=== PATIENT | male | born 1965 | race African-American/Black ===

== ENCOUNTER 2018-09-02 00:38 | Inpatient (IN) | payer MEDICAID, OTHER ==
[~2018-09-02] VITALS: Ht 180.3 cm; Wt 81.8 kg
[2018-09-02 01:22] LABS: BASOPHILS % (AUTO) 0.6 % (0.0-2.0); HEMOGLOBIN 13.6 g/dL (13.5-17.5); LYMPHOCYTES # (AUTO) 1.4 K/uL (1.0-4.8); LYMPHOCYTES % (AUTO) 14.2 % (22.0-44.0); MEAN CORPUSCULAR HEMOGLOBIN 30.3 pg (26.0-34.0); MEAN CORPUSCULAR HGB CONC 33.9 G/dL (31.0-37.0); MEAN CORPUSCULAR VOLUME 89 fL (80-100); MONOCYTES % (AUTO) 9.4 % (2.0-9.0); NEUTROPHILS # (AUTO) 7.4 K/uL (1.8-7.7); NEUTROPHILS % (AUTO) 72.8 % (40.0-70.0); PLATELET COUNT (AUTO) 278 K/uL (150-450); RED BLOOD CELL COUNT(AUTO) 4.48 MIL/uL (4.50-5.90)
[2018-09-02 01:35] LABS: ANION GAP 12 mmol/L (8-16); CALCIUM, TOTAL 9.4 mg/dL (8.8-10.5); CARBON DIOXIDE 27 mmol/L (22-29); CHLORIDE 101 mmol/L (98-107); CREATININE 1.35 mg/dL (0.60-1.30); GLOMERULAR FILTR. RATE CALC > 60 mL/min (>60); GLUCOSE,RANDOM 101 mg/dL (70-110); POTASSIUM 3.2 mmol/L (3.5-5.1); SODIUM SERUM 140 mmol/L (136-145); UREA NITROGEN, BLOOD 14 mg/dL (7-18)
[2018-09-02 01:38] LABS: ALANINE AMINOTRANSFERASE 23 U/L (12-78); ALBUMIN 3.8 g/dL (3.4-5.0); ALKALINE PHOSPHATASE 76 U/L (46-116); ASPARTATE AMINOTRANSFERASE 21 U/L (15-37); BILIRUBIN,TOTAL 0.7 mg/dL (0.1-1.0); TOTAL PROTEIN, SERUM 7.5 g/dL (6.4-8.2)
[2018-09-02] MEDS ORDERED: LORazepam 2 MG TABLET PO ONE (02:00)
[2018-09-02] MEDS ORDERED: OLANZapine 5 MG TABLET PO ONE (02:00)
[2018-09-02] MEDS ORDERED: OLANZapine 5 MG RAPDIS TABLET PO PRN (02:15)
[2018-09-02] MEDS ORDERED: POTASSIUM CHLORIDE 20 MEQ ER TABLET PO ONE (02:30)
[2018-09-02] MEDS ORDERED: IBUPROFEN 800 MG TABLET PO ONE (02:30)
[2018-09-02 03:50] VITALS: BP 101/62
[2018-09-02] MEDS ORDERED: PNEUMOCOCCAL VACCINE POLYVALENT 0.5 ML VIAL [PPSV23] IM ONE (04:30)
[2018-09-02] MEDS ORDERED: CloNIDine HCL 0.1 MG TABLET PO PRN (05:45)
[2018-09-02] MEDS ORDERED: MAG HYDROX/AL HYDROX/SIMETH ES 30 ML SUSPENSION UDCUP PO PRN (05:45)
[2018-09-02] MEDS ORDERED: ONDANSETRON HCL 4 MG TABLET PO PRN (05:45)
[2018-09-02] MEDS ORDERED: LOPERAMIDE HCL 2 MG CAPSULE PO PRN (05:45)
[2018-09-02] MEDS ORDERED: ACETAMINOPHEN 325 MG TABLET PO PRN (05:45)
[2018-09-02] MEDS ORDERED: ALBUTEROL SULFATE HFA 90 MCG/PUFF 8 GM INHALER IH PRN (05:45)
[2018-09-02] MEDS ORDERED: MAGNESIUM HYDROXIDE SUSPENSION 30 ML UDCUP PO PRN (05:45)
[2018-09-02] MEDS ORDERED: NICOTINE 14 MG/24 HOUR PATCH TD PRN (05:45)
[2018-09-02] MEDS ORDERED: PETROLATUM,WHITE 28 GM JELLY TP PRN (05:45)
[2018-09-02] MEDS ORDERED: IBUPROFEN 400 MG TABLET PO PRN (05:45)
[2018-09-02] MEDS ORDERED: DOCUSATE SODIUM 100 MG CAPSULE PO PRN (05:45)
[2018-09-02 08:54] VITALS: BP 103/62
[2018-09-02] MEDS: BusPIRone HCL 10 MG TABLET PO SCH ×2 (12:55→17:07)
[2018-09-02] MEDS: GuaiFENesin/D-METHORPHAN [SUGAR-FREE] 200-20MG/10 ML SYRUP UDCUP PO PRN (17:23)
[2018-09-02 17:45] VITALS: BP 122/75
[2018-09-02] MEDS: OLANZapine 10 MG TABLET PO SCH (20:29)
[2018-09-02] MEDS: MIRTAZAPINE 15 MG TABLET PO SCH (20:30)
[2018-09-03 00:03] VITALS: BP 103/72
[2018-09-03] MEDS: GuaiFENesin/D-METHORPHAN [SUGAR-FREE] 200-20MG/10 ML SYRUP UDCUP PO PRN (00:05)
[2018-09-03 08:22] LABS: BASOPHILS % (AUTO) 0.5 % (0.0-2.0); HEMATOCRIT 44.9 % (41-53); HEMOGLOBIN 14.9 g/dL (13.5-17.5); LYMPHOCYTES # (AUTO) 1.7 K/uL (1.0-4.8); LYMPHOCYTES % (AUTO) 17.4 % (22.0-44.0); MEAN CORPUSCULAR HEMOGLOBIN 29.9 pg (26.0-34.0); MEAN CORPUSCULAR HGB CONC 33.2 G/dL (31.0-37.0); MEAN CORPUSCULAR VOLUME 90 fL (80-100); MONOCYTES # (AUTO) 1.2 K/uL (0.1-1.0); NEUTROPHILS # (AUTO) 6.5 K/uL (1.8-7.7); NEUTROPHILS % (AUTO) 67.1 % (40.0-70.0); PLATELET COUNT (AUTO) 300 K/uL (150-450); RED BLOOD CELL COUNT(AUTO) 4.99 MIL/uL (4.50-5.90)
[2018-09-03 08:36] LABS: HEMOGLOBIN A1C 5.6 % (4.5-6.2)
[2018-09-03 08:51] LABS: ALANINE AMINOTRANSFERASE 20 U/L (12-78); ALBUMIN 3.5 g/dL (3.4-5.0); ALKALINE PHOSPHATASE 75 U/L (46-116); ANION GAP 12 mmol/L (8-16); ASPARTATE AMINOTRANSFERASE 15 U/L (15-37); BILIRUBIN,TOTAL 0.5 mg/dL (0.1-1.0); CALCIUM, TOTAL 9.3 mg/dL (8.8-10.5); CARBON DIOXIDE 26 mmol/L (22-29); CHLORIDE 101 mmol/L (98-107); CHOL/HDL RATIO 2.9 (4.2-7.3); CHOLESTEROL 197 mg/dL (131-200); CREATININE 0.92 mg/dL (0.60-1.30); FREE T4 (FREE THYROXINE) 0.95 ng/dL (0.76-1.46); GLOMERULAR FILTR. RATE CALC > 60 mL/min (>60); GLUCOSE,RANDOM 85 mg/dL (70-110); HDL CHOLESTEROL 68 mg/dL (40-60); LDL CHOL (CALC.) 114 mg/dL (0-130); POTASSIUM 3.6 mmol/L (3.5-5.1); SODIUM SERUM 139 mmol/L (136-145); THYROID STIMULATING HORMONE 1.49 uIU/mL (0.36-3.74); TOTAL PROTEIN, SERUM 7.5 g/dL (6.4-8.2); TRIGLYCERIDES 74 mg/dL (15-150); UREA NITROGEN, BLOOD 12 mg/dL (7-18)
[2018-09-03] MEDS: BusPIRone HCL 10 MG TABLET PO SCH ×2 (08:51→16:25)
[2018-09-03 09:37] VITALS: BP 91/61
[2018-09-03 16:00] VITALS: BP 118/70
[2018-09-03] MEDS: MIRTAZAPINE 15 MG TABLET PO SCH (21:00)
[2018-09-03] MEDS: OLANZapine 10 MG TABLET PO SCH (21:00)
[2018-09-04 08:24] VITALS: BP 115/62
[2018-09-04] MEDS: PENICILLIN V POTASSIUM 500 MG TABLET PO SCH ×2 (08:29→16:54)
[2018-09-04] MEDS: BusPIRone HCL 10 MG TABLET PO SCH ×2 (08:29→16:54)
[2018-09-04 09:34] LABS: AMPHET/METH SCREEN,URINE POSITIVE (NEGATIVE); BARBITURATE SCREEN, URINE NEGATIVE (NEGATIVE); BENZODIAZEPINES SCREEN,URINE NEGATIVE (NEGATIVE); CANNABINOID SCREEN,URINE POSITIVE (NEGATIVE); COCAINE SCREEN,URINE NEGATIVE (NEGATIVE); METHADONE SCREEN, URINE NEGATIVE (NEGATIVE); OPIATE SCREEN,URINE NEGATIVE (NEGATIVE)
[2018-09-04 09:38] LABS: APPEARANCE,URINE CLEAR (CLEAR); BILIRUBIN,URINE NEGATIVE (NEGATIVE); GLUCOSE, URINE (UA) NEGATIVE (NEGATIVE); KETONES,URINE NEGATIVE (NEGATIVE); LEUKOCYTE ESTERASE ,URINE NEGATIVE (NEGATIVE); NITRATE,URINE NEGATIVE (NEGATIVE); OCCULT BLOOD,URINE NEGATIVE (NEGATIVE); PH,URINE 6.5 (5.0-8.0); PROTEIN,URINE NEGATIVE (NEGATIVE); UROBILINOGEN,URINE 0.2 mg/dL (<=1.0)
[2018-09-04 09:39] LABS: PHENCYCLIDINE SCREEN,URINE NEGATIVE (NEGATIVE)
[2018-09-04 16:02] VITALS: BP 106/68
[2018-09-04] MEDS: MIRTAZAPINE 15 MG TABLET PO SCH (20:44)
[2018-09-04] MEDS: OLANZapine 10 MG TABLET PO SCH (20:44)
[2018-09-05 06:54] VITALS: BP 111/65
[2018-09-05] MEDS: PENICILLIN V POTASSIUM 500 MG TABLET PO SCH ×2 (08:46→16:45)
[2018-09-05] MEDS: BusPIRone HCL 10 MG TABLET PO SCH ×2 (08:46→16:45)
[2018-09-05 09:06] VITALS: BP 92/47
[2018-09-05 16:01] VITALS: BP 102/62
[2018-09-05] MEDS: OLANZapine 10 MG TABLET PO SCH (20:53)
[2018-09-05] MEDS: MIRTAZAPINE 15 MG TABLET PO SCH (20:54)
[2018-09-06 06:08] VITALS: BP 110/67
[2018-09-06 08:05] VITALS: BP 102/56
[2018-09-06] MEDS: PENICILLIN V POTASSIUM 500 MG TABLET PO SCH ×2 (08:11→16:28)
[2018-09-06] MEDS: BusPIRone HCL 10 MG TABLET PO SCH ×2 (08:12→16:28)
[2018-09-06 15:59] VITALS: BP 101/65
[2018-09-06 16:29] VITALS: BP 101/65
[2018-09-06] MEDS: OLANZapine 10 MG TABLET PO SCH (20:02)
[2018-09-06] MEDS: MIRTAZAPINE 15 MG TABLET PO SCH (20:02)
[2018-09-07] MEDS: BusPIRone HCL 10 MG TABLET PO SCH ×2 (09:00→16:16)
[2018-09-07] MEDS: PENICILLIN V POTASSIUM 500 MG TABLET PO SCH ×2 (09:00→16:16)
[2018-09-07 09:27] VITALS: BP 100/63
[2018-09-07 16:38] VITALS: BP 113/75
[2018-09-07] MEDS: MIRTAZAPINE 15 MG TABLET PO SCH (21:01)
[2018-09-07] MEDS: OLANZapine 10 MG TABLET PO SCH (21:01)
[2018-09-08 06:47] VITALS: BP 107/69
[2018-09-08 08:04] VITALS: BP 101/58
[2018-09-08] MEDS: PENICILLIN V POTASSIUM 500 MG TABLET PO SCH ×2 (09:04→16:41)
[2018-09-08] MEDS: BusPIRone HCL 10 MG TABLET PO SCH ×2 (09:04→16:41)
[2018-09-08] MEDS: LORazepam 2 MG TABLET PO PRN (17:31)
[2018-09-08 20:17] VITALS: BP 100/64
[2018-09-08] MEDS: GABAPENTIN 300 MG CAPSULE PO SCH (20:46)
[2018-09-08] MEDS: MIRTAZAPINE 15 MG TABLET PO SCH (20:47)
[2018-09-08] MEDS: OLANZapine 10 MG TABLET PO SCH (20:47)
[2018-09-08] MEDS: ZOLPIDEM TARTRATE 10 MG TABLET PO PRN (20:47)
[2018-09-09 08:24] VITALS: BP 100/62
[2018-09-09] MEDS: PENICILLIN V POTASSIUM 500 MG TABLET PO SCH ×2 (09:35→17:11)
[2018-09-09] MEDS: BusPIRone HCL 10 MG TABLET PO SCH ×2 (09:35→17:11)
[2018-09-09 16:00] VITALS: BP 116/76
[2018-09-09] MEDS: LORazepam 2 MG TABLET PO PRN (17:11)
[2018-09-09] MEDS: MIRTAZAPINE 15 MG TABLET PO SCH (20:37)
[2018-09-09] MEDS: GABAPENTIN 300 MG CAPSULE PO SCH (20:37)
[2018-09-09] MEDS: OLANZapine 10 MG TABLET PO SCH (20:37)
[2018-09-10 08:21] VITALS: BP 97/59
[2018-09-10] MEDS: BusPIRone HCL 10 MG TABLET PO SCH ×2 (09:07→16:49)
[2018-09-10] MEDS: PENICILLIN V POTASSIUM 500 MG TABLET PO SCH ×2 (09:07→16:49)
[2018-09-10 16:13] VITALS: BP 104/58
[2018-09-10 16:30] VITALS: BP 109/63
[2018-09-10] MEDS: LORazepam 2 MG TABLET PO PRN (16:49)
[2018-09-10] MEDS: MIRTAZAPINE 15 MG TABLET PO SCH (20:33)
[2018-09-10] MEDS: ZOLPIDEM TARTRATE 10 MG TABLET PO PRN (20:33)
[2018-09-10] MEDS: GABAPENTIN 300 MG CAPSULE PO SCH (20:33)
[2018-09-10] MEDS: OLANZapine 10 MG TABLET PO SCH (20:33)
[2018-09-11] MEDS: LORazepam 2 MG TABLET PO PRN (08:20)
[2018-09-11] MEDS: BusPIRone HCL 10 MG TABLET PO SCH ×2 (08:20→16:37)
[2018-09-11] MEDS: PENICILLIN V POTASSIUM 500 MG TABLET PO SCH ×2 (08:21→16:36)
[2018-09-11 08:40] VITALS: BP 107/58
[2018-09-11 16:38] VITALS: BP 104/62
[2018-09-11] MEDS: MIRTAZAPINE 15 MG TABLET PO SCH (20:30)
[2018-09-11] MEDS: OLANZapine 10 MG TABLET PO SCH (20:30)
[2018-09-11] MEDS: GABAPENTIN 300 MG CAPSULE PO SCH (20:30)
[2018-09-12 05:30] VITALS: BP 105/64
[2018-09-12] MEDS: PENICILLIN V POTASSIUM 500 MG TABLET PO SCH ×2 (09:00→12:36)
[2018-09-12] MEDS: BusPIRone HCL 10 MG TABLET PO SCH ×2 (09:00→12:36)
[2018-09-12] MEDS ORDERED: BUSP10TA23 PO ×3 (12:06→12:29)
[2018-09-12] MEDS ORDERED: OLAN10TA3 PO ×2 (12:07→12:30)
[2018-09-12] MEDS ORDERED: MIRT15 PO ×2 (12:07→12:29)
[2018-09-12] MEDS ORDERED: GABA-531 PO ×3 (12:24→12:30)
[2018-09-12] MEDS ORDERED: PENI500T2 PO (12:31)
== END 2018-09-12 13:30 | disposition home or self-care (01) | DRG 750 ==
LOC: EMS 00:39 → B3A 02:37
PROVIDERS: ADMIT Psychiatry & Neurology Psychiatry; ATTEND Psychiatry & Neurology Psychiatry
DX: F25.0 Schizoaffective disorder, bipolar type (principal); N17.9 Acute kidney failure, unspecified; R45.851 Suicidal ideations; E87.6 Hypokalemia; F31.9 Bipolar disorder, unspecified; G89.29 Other chronic pain; I10 Essential (primary) hypertension; J35.1 Hypertrophy of tonsils; F17.210 Nicotine dependence, cigarettes, uncomplicated; F12.90 Cannabis use, unspecified, uncomplicated; F41.9 Anxiety disorder, unspecified; F15.10 Other stimulant abuse, uncomplicated; Z71.51 Drug abuse counseling and surveillance of drug abuser; Z59.0 Homelessness; Z79.899 Other long term (current) drug therapy
CPT/HCPCS: 80307; 83036; 84439; 84443; 90686; 90732; G0480

== ENCOUNTER 2018-09-03 20:04 | Emergency (ER) | payer MEDICAID ==
[~2018-09-03] VITALS: Ht 180.3 cm; Wt 0.9 kg
[2018-09-03] MEDS ORDERED: MAALOX/LIDOCAINE/NYSTATIN SUSP 5 ML ORAL.SYG PO ONE (20:30)
[2018-09-03] MEDS ORDERED: BENZOCAINE 20% 50 MCG/SPRAY 57 GM TP ONE (20:30)
[2018-09-03] MEDS ORDERED: DEXAMETHASONE 4 MG TABLET PO ONE (20:30)
[2018-09-03] MEDS ORDERED: PENICILLIN V POTASSIUM 500 MG TABLET PO ONE (21:00)
[2018-09-03 23:10] VITALS: BP 132/69
== END 2018-09-04 00:01 | disposition home or self-care (01) ==
LOC: EMS 20:05
DX: J03.90 Acute tonsillitis, unspecified (principal); I10 Essential (primary) hypertension; F31.9 Bipolar disorder, unspecified; F41.9 Anxiety disorder, unspecified; F20.9 Schizophrenia, unspecified; F17.210 Nicotine dependence, cigarettes, uncomplicated; F12.90 Cannabis use, unspecified, uncomplicated; F19.90 Other psychoactive substance use, unspecified, uncomplicated
CPT/HCPCS: 99284; J8540

== ENCOUNTER 2018-10-03 16:29 | Inpatient (IN) | payer MEDICAID ==
[~2018-10-03] VITALS: Ht 180.3 cm; Wt 82.3 kg
[~2018-10-03 16:29] MED LIST: BUSP10TA23 PO; GABA-531 PO; MIRT15 PO; OLAN10TA3 PO; PENI500T2 PO
[2018-10-03] MEDS ORDERED: LORazepam 2 MG TABLET PO PRN (18:30)
[2018-10-03] MEDS ORDERED: ZOLPIDEM TARTRATE 10 MG TABLET PO PRN (18:30)
[2018-10-03] MEDS ORDERED: PNEUMOCOCCAL VACCINE POLYVALENT 0.5 ML VIAL [PPSV23] IM ONE (18:30)
[2018-10-03] MEDS ORDERED: HALOPERIDOL 5 MG TABLET PO PRN (18:30)
[2018-10-03 19:04] VITALS: BP 118/75
[2018-10-03] MEDS ORDERED: LOPERAMIDE HCL 2 MG CAPSULE PO PRN (21:30)
[2018-10-03] MEDS ORDERED: DOCUSATE SODIUM 100 MG CAPSULE PO PRN (21:30)
[2018-10-03] MEDS ORDERED: NICOTINE 14 MG/24 HOUR PATCH TD PRN (21:30)
[2018-10-03] MEDS ORDERED: IBUPROFEN 400 MG TABLET PO PRN (21:30)
[2018-10-03] MEDS ORDERED: PETROLATUM,WHITE 28 GM JELLY TP PRN (21:30)
[2018-10-03] MEDS ORDERED: ACETAMINOPHEN 325 MG TABLET PO PRN (21:30)
[2018-10-03] MEDS ORDERED: GuaiFENesin/D-METHORPHAN [SUGAR-FREE] 200-20MG/10 ML SYRUP UDCUP PO PRN (21:30)
[2018-10-03] MEDS ORDERED: MAGNESIUM HYDROXIDE SUSPENSION 30 ML UDCUP PO PRN (21:30)
[2018-10-03] MEDS ORDERED: ALBUTEROL SULFATE HFA 90 MCG/PUFF 8 GM INHALER IH PRN (21:30)
[2018-10-03] MEDS ORDERED: MAG HYDROX/AL HYDROX/SIMETH ES 30 ML SUSPENSION UDCUP PO PRN (21:30)
[2018-10-03] MEDS ORDERED: CloNIDine HCL 0.1 MG TABLET PO PRN (21:30)
[2018-10-03] MEDS ORDERED: ONDANSETRON HCL 4 MG TABLET PO PRN (21:30)
[2018-10-04 05:20] VITALS: BP 117/66
[2018-10-04 07:20] LABS: BASOPHILS % (AUTO) 1.4 % (0.0-2.0); EOSINOPHILS % (AUTO) 7.5 % (1.0-6.0); HEMATOCRIT 41.9 % (41-53); HEMOGLOBIN 13.9 g/dL (13.5-17.5); LYMPHOCYTES # (AUTO) 1.3 K/uL (1.0-4.8); LYMPHOCYTES % (AUTO) 26.8 % (22.0-44.0); MEAN CORPUSCULAR HEMOGLOBIN 29.7 pg (26.0-34.0); MEAN CORPUSCULAR HGB CONC 33.2 G/dL (31.0-37.0); MEAN CORPUSCULAR VOLUME 89 fL (80-100); MONOCYTES # (AUTO) 0.6 K/uL (0.1-1.0); MONOCYTES % (AUTO) 12.8 % (2.0-9.0); NEUTROPHILS # (AUTO) 2.5 K/uL (1.8-7.7); NEUTROPHILS % (AUTO) 51.5 % (40.0-70.0); PLATELET COUNT (AUTO) 253 K/uL (150-450); RED BLOOD CELL COUNT(AUTO) 4.68 MIL/uL (4.50-5.90); RED CELL DISTRIBUTION WIDTH 14.2 % (11.5-14.5)
[2018-10-04 07:45] LABS: HEMOGLOBIN A1C 5.6 % (4.5-6.2)
[2018-10-04 07:59] LABS: ALANINE AMINOTRANSFERASE 30 U/L (12-78); ALBUMIN 3.5 g/dL (3.4-5.0); ALKALINE PHOSPHATASE 74 U/L (46-116); ANION GAP 8 mmol/L (8-16); ASPARTATE AMINOTRANSFERASE 36 U/L (15-37); BILIRUBIN,TOTAL 0.4 mg/dL (0.1-1.0); CALCIUM, TOTAL 8.7 mg/dL (8.8-10.5); CARBON DIOXIDE 28 mmol/L (22-29); CHLORIDE 103 mmol/L (98-107); CHOL/HDL RATIO 2.3 (4.2-7.3); CHOLESTEROL 194 mg/dL (131-200); FREE T4 (FREE THYROXINE) 0.94 ng/dL (0.76-1.46); GLOMERULAR FILTR. RATE CALC > 60 mL/min (>60); GLUCOSE,RANDOM 98 mg/dL (70-110); HDL CHOLESTEROL 86 mg/dL (40-60); LDL CHOL (CALC.) 95 mg/dL (0-130); POTASSIUM 4.2 mmol/L (3.5-5.1); SODIUM SERUM 139 mmol/L (136-145); THYROID STIMULATING HORMONE 2.34 uIU/mL (0.36-3.74); TOTAL PROTEIN, SERUM 7.1 g/dL (6.4-8.2); TRIGLYCERIDES 64 mg/dL (15-150); UREA NITROGEN, BLOOD 23 mg/dL (7-18)
[2018-10-04 08:00] VITALS: BP 111/68
[2018-10-04] MEDS: BusPIRone HCL 10 MG TABLET PO SCH (16:05)
[2018-10-04 17:00] VITALS: BP 98/55
[2018-10-04] MEDS: OLANZapine 10 MG TABLET PO SCH (20:33)
[2018-10-04] MEDS: MIRTAZAPINE 15 MG TABLET PO SCH (20:33)
[2018-10-04] MEDS ORDERED: GABAPENTIN 300 MG CAPSULE PO SCH (21:00)
[2018-10-05 04:54] VITALS: BP 112/72
[2018-10-05 08:28] VITALS: BP 116/71
[2018-10-05] MEDS: BusPIRone HCL 10 MG TABLET PO SCH ×2 (08:44→17:47)
[2018-10-05 16:17] VITALS: BP 100/67
[2018-10-05] MEDS: GABAPENTIN 300 MG CAPSULE PO SCH (17:47)
[2018-10-05] MEDS: OLANZapine 10 MG TABLET PO SCH (21:27)
[2018-10-05] MEDS: MIRTAZAPINE 15 MG TABLET PO SCH (21:27)
[2018-10-06 00:07] VITALS: BP 107/69
[2018-10-06 08:19] VITALS: BP 115/74
[2018-10-06] MEDS: GABAPENTIN 300 MG CAPSULE PO SCH ×2 (08:35→17:20)
[2018-10-06] MEDS: BusPIRone HCL 10 MG TABLET PO SCH ×2 (08:35→17:20)
[2018-10-06 16:49] VITALS: BP 109/62
[2018-10-06] MEDS: MIRTAZAPINE 15 MG TABLET PO SCH (20:55)
[2018-10-06] MEDS: OLANZapine 10 MG TABLET PO SCH (20:55)
[2018-10-07 06:58] VITALS: BP 114/60
[2018-10-07 08:00] VITALS: BP 106/56
[2018-10-07] MEDS: BusPIRone HCL 10 MG TABLET PO SCH ×2 (09:34→16:45)
[2018-10-07] MEDS: GABAPENTIN 300 MG CAPSULE PO SCH ×2 (09:34→16:45)
[2018-10-07 16:12] VITALS: BP 107/74
[2018-10-07] MEDS: OLANZapine 10 MG TABLET PO SCH (21:00)
[2018-10-07] MEDS: MIRTAZAPINE 15 MG TABLET PO SCH (21:00)
[2018-10-08 00:36] VITALS: BP 107/65
[2018-10-08 09:06] VITALS: BP 110/66
[2018-10-08] MEDS: BusPIRone HCL 10 MG TABLET PO SCH ×2 (09:08→16:03)
[2018-10-08] MEDS: GABAPENTIN 300 MG CAPSULE PO SCH ×2 (09:08→16:03)
[2018-10-08 16:24] VITALS: BP 114/79
[2018-10-08] MEDS: MIRTAZAPINE 15 MG TABLET PO SCH (20:27)
[2018-10-08] MEDS: OLANZapine 10 MG TABLET PO SCH (20:27)
[2018-10-09 02:40] VITALS: BP 102/71
[2018-10-09 08:19] VITALS: BP 112/60
[2018-10-09] MEDS: BusPIRone HCL 10 MG TABLET PO SCH (09:22)
[2018-10-09] MEDS: GABAPENTIN 300 MG CAPSULE PO SCH (09:22)
== END 2018-10-09 11:35 | disposition home or self-care (01) | DRG 750 ==
LOC: B2S 18:25
PROVIDERS: ADMIT Psychiatry & Neurology Psychiatry; ATTEND Psychiatry & Neurology Psychiatry
DX: F25.1 Schizoaffective disorder, depressive type (principal); G62.9 Polyneuropathy, unspecified; F15.90 Other stimulant use, unspecified, uncomplicated; I10 Essential (primary) hypertension; G44.209 Tension-type headache, unspecified, not intractable; F31.9 Bipolar disorder, unspecified; F41.9 Anxiety disorder, unspecified; R45.87 Impulsiveness; Z59.0 Homelessness; Z81.8 Family history of other mental and behavioral disorders
CPT/HCPCS: 83036; 84439; 84443; 87081

== ENCOUNTER 2018-11-11 21:54 | Inpatient (IN) | payer MEDICAID ==
[~2018-11-11] VITALS: Ht 180.3 cm; Wt 82.8 kg
[2018-11-11 18:35] VITALS: BP 141/88
[~2018-11-11 21:54] MED LIST changes: +GuaiFENesin/D-METHORPHAN [SUGAR-FREE] 200-20MG/10 ML SYRUP UDCUP PO PRN; +HydrOXYzine PAMOATE 50 MG CAPSULE PO PRN; +LOPERAMIDE HCL 2 MG CAPSULE PO PRN; +LORazepam 2 MG TABLET PO PRN; +MAG HYDROX/AL HYDROX/SIMETH ES 30 ML SUSPENSION UDCUP PO PRN; +MAGNESIUM HYDROXIDE SUSPENSION 30 ML UDCUP PO PRN; +MIRTAZAPINE 15 MG TABLET PO SCH; +OLANZapine 5 MG RAPDIS TABLET PO PRN; -PENI500T2 PO; +PROMETHAZINE HCL 25 MG TABLET PO PRN; +TUBERCULIN, PURIFIED PROTEIN DERIVATIVE 5 TU/0.1 ML SYRINGE ID ONE; +ZOLPIDEM TARTRATE 10 MG TABLET PO PRN
[2018-11-12] MEDS ORDERED: IBUPROFEN 800 MG TABLET PO ONE (01:30)
[2018-11-12 02:00] LABS: AMPHET/METH SCREEN,URINE POSITIVE (NEGATIVE); BARBITURATE SCREEN, URINE NEGATIVE (NEGATIVE); BENZODIAZEPINES SCREEN,URINE NEGATIVE (NEGATIVE); CANNABINOID SCREEN,URINE POSITIVE (NEGATIVE); COCAINE SCREEN,URINE NEGATIVE (NEGATIVE); METHADONE SCREEN, URINE NEGATIVE (NEGATIVE); OPIATE SCREEN,URINE NEGATIVE (NEGATIVE)
[2018-11-12 02:02] LABS: PHENCYCLIDINE SCREEN,URINE NEGATIVE (NEGATIVE)
[2018-11-12 03:49] LABS: BASOPHILS % (AUTO) 0.6 % (0.0-2.0); EOSINOPHILS % (AUTO) 5.1 % (1.0-6.0); LYMPHOCYTES % (AUTO) 29.5 % (22.0-44.0); MEAN CORPUSCULAR HEMOGLOBIN 29.8 pg (26.0-34.0); MEAN CORPUSCULAR HGB CONC 33.2 G/dL (31.0-37.0); MEAN CORPUSCULAR VOLUME 90 fL (80-100); MONOCYTES # (AUTO) 0.8 K/uL (0.1-1.0); MONOCYTES % (AUTO) 12.2 % (2.0-9.0); NEUTROPHILS # (AUTO) 3.6 K/uL (1.8-7.7); NEUTROPHILS % (AUTO) 52.6 % (40.0-70.0); PLATELET COUNT (AUTO) 234 K/uL (150-450); RED BLOOD CELL COUNT(AUTO) 4.68 MIL/uL (4.50-5.90); RED CELL DISTRIBUTION WIDTH 13.8 % (11.5-14.5)
[2018-11-12 04:00] LABS: HEMOGLOBIN A1C 5.6 % (4.5-6.2)
[2018-11-12 04:05] LABS: ALANINE AMINOTRANSFERASE 31 U/L (12-78); ALBUMIN 3.8 g/dL (3.4-5.0); ALKALINE PHOSPHATASE 76 U/L (46-116); ANION GAP 15 mmol/L (8-16); ASPARTATE AMINOTRANSFERASE 39 U/L (15-37); BILIRUBIN,TOTAL 1.2 mg/dL (0.1-1.0); CALCIUM, TOTAL 8.6 mg/dL (8.8-10.5); CARBON DIOXIDE 27 mmol/L (22-29); CHLORIDE 101 mmol/L (98-107); CHOL/HDL RATIO 2.5 (4.2-7.3); CHOLESTEROL 186 mg/dL (131-200); CREATININE 1.05 mg/dL (0.60-1.30); FREE T4 (FREE THYROXINE) 1.14 ng/dL (0.76-1.46); GLOMERULAR FILTR. RATE CALC > 60 mL/min (>60); GLUCOSE,RANDOM 82 mg/dL (70-110); HDL CHOLESTEROL 74 mg/dL (40-60); LDL CHOL (CALC.) 102 mg/dL (0-130); POTASSIUM 3.1 mmol/L (3.5-5.1); SODIUM SERUM 143 mmol/L (136-145); TOTAL PROTEIN, SERUM 7.1 g/dL (6.4-8.2); TRIGLYCERIDES 52 mg/dL (15-150); UREA NITROGEN, BLOOD 17 mg/dL (7-18)
[2018-11-12] MEDS ORDERED: POTASSIUM CHLORIDE 20 MEQ ER TABLET PO ONE (04:30)
[2018-11-12] MEDS ORDERED: PNEUMOCOCCAL VACCINE POLYVALENT 0.5 ML VIAL [PPSV23] IM ONE (06:15)
[2018-11-12] MEDS: MULTIVITAMINS WITH MINERALS, THERAPEUTIC TABLET PO SCH (09:13)
[2018-11-12] MEDS: FOLIC ACID 1 MG TABLET PO SCH (09:13)
[2018-11-12] MEDS: NALTREXONE HCL 50 MG TABLET PO SCH (09:13)
[2018-11-12 15:58] VITALS: BP 130/60
[2018-11-12] MEDS: THIAMINE HCL 100 MG TABLET PO SCH (16:45)
[2018-11-12] MEDS: GABAPENTIN 300 MG CAPSULE PO SCH ×2 (16:45→20:34)
[2018-11-12] MEDS: ACETAMINOPHEN 325 MG TABLET PO PRN (16:58)
[2018-11-12] MEDS: OLANZapine 5 MG RAPDIS TABLET PO SCH (20:35)
[2018-11-13 06:31] VITALS: BP 121/61
[2018-11-13] MEDS: FOLIC ACID 1 MG TABLET PO SCH (08:22)
[2018-11-13] MEDS: THIAMINE HCL 100 MG TABLET PO SCH ×2 (08:22→16:52)
[2018-11-13] MEDS: GABAPENTIN 300 MG CAPSULE PO SCH ×4 (08:22→21:01)
[2018-11-13] MEDS: MULTIVITAMINS WITH MINERALS, THERAPEUTIC TABLET PO SCH (08:22)
[2018-11-13] MEDS: NALTREXONE HCL 50 MG TABLET PO SCH (08:22)
[2018-11-13 08:28] VITALS: BP 109/64
[2018-11-13 16:03] VITALS: BP 101/63
[2018-11-13] MEDS: DIVALPROEX SODIUM 500 MG ER TABLET PO SCH (21:00)
[2018-11-13] MEDS: OLANZapine 5 MG RAPDIS TABLET PO SCH (21:01)
[2018-11-14 05:46] VITALS: BP 114/72
[2018-11-14 08:24] VITALS: BP 112/65
[2018-11-14] MEDS: FOLIC ACID 1 MG TABLET PO SCH (08:44)
[2018-11-14] MEDS: MULTIVITAMINS WITH MINERALS, THERAPEUTIC TABLET PO SCH (08:44)
[2018-11-14] MEDS: THIAMINE HCL 100 MG TABLET PO SCH ×2 (08:44→16:45)
[2018-11-14] MEDS: GABAPENTIN 300 MG CAPSULE PO SCH ×4 (08:44→20:13)
[2018-11-14] MEDS: NALTREXONE HCL 50 MG TABLET PO SCH (08:44)
[2018-11-14] MEDS ORDERED: NALT50TA PO (15:30)
[2018-11-14] MEDS ORDERED: GABA-531 PO (15:30)
[2018-11-14] MEDS ORDERED: OLAN5TAB30 PO (15:30)
[2018-11-14] MEDS ORDERED: DIVA500T52 PO (15:30)
[2018-11-14 16:15] VITALS: BP 110/75
[2018-11-14] MEDS: DIVALPROEX SODIUM 500 MG ER TABLET PO SCH (20:13)
[2018-11-14] MEDS ORDERED: OLANZapine 10 MG RAPDIS TABLET PO SCH (21:00)
[2018-11-15 02:01] VITALS: BP 105/72
[2018-11-15] MEDS: ACETAMINOPHEN 325 MG TABLET PO PRN (02:05)
[2018-11-15 08:02] VITALS: BP 105/57
[2018-11-15] MEDS: MULTIVITAMINS WITH MINERALS, THERAPEUTIC TABLET PO SCH (09:16)
[2018-11-15] MEDS: GABAPENTIN 300 MG CAPSULE PO SCH ×2 (09:16→12:21)
[2018-11-15] MEDS: FOLIC ACID 1 MG TABLET PO SCH (09:16)
[2018-11-15] MEDS: NALTREXONE HCL 50 MG TABLET PO SCH (09:16)
[2018-11-15] MEDS: THIAMINE HCL 100 MG TABLET PO SCH (09:16)
[2018-11-15] MEDS ORDERED: NALT50TA6 PO (11:26)
[2018-11-15] MEDS ORDERED: GABA-531 PO (11:26)
[2018-11-15] MEDS ORDERED: OLAN20TA17 PO (11:26)
[2018-11-15] MEDS ORDERED: DIVA500T52 PO (11:26)
== END 2018-11-15 13:52 | disposition home or self-care (01) | DRG 750 ==
LOC: EDSTATUS 21:54 → BV PSY EVL 22:02 → AHU 11-12 10:40 → B3A 11-12 11:58
PROVIDERS: ADMIT Psychiatry & Neurology Psychiatry; ATTEND Psychiatry & Neurology Psychiatry
DX: F25.9 Schizoaffective disorder, unspecified (principal); Z59.0 Homelessness; F12.90 Cannabis use, unspecified, uncomplicated; F15.10 Other stimulant abuse, uncomplicated; F31.9 Bipolar disorder, unspecified; I10 Essential (primary) hypertension; F17.210 Nicotine dependence, cigarettes, uncomplicated; M25.552 Pain in left hip; M54.5 Low back pain; F41.9 Anxiety disorder, unspecified; G47.00 Insomnia, unspecified; Z79.899 Other long term (current) drug therapy
CPT/HCPCS: 83036; 84132; 84439; 84443; 86592; 90732; G0480

== ENCOUNTER 2019-02-24 16:12 | Inpatient (IN) | payer MEDICAID ==
[~2019-02-24] VITALS: Ht 180.3 cm; Wt 85.3 kg
[~2019-02-24 16:12] MED LIST changes: -BUSP10TA23 PO; +DIVA500T52 PO; -GuaiFENesin/D-METHORPHAN [SUGAR-FREE] 200-20MG/10 ML SYRUP UDCUP PO PRN; -HydrOXYzine PAMOATE 50 MG CAPSULE PO PRN; -LOPERAMIDE HCL 2 MG CAPSULE PO PRN; -LORazepam 2 MG TABLET PO PRN; -MAG HYDROX/AL HYDROX/SIMETH ES 30 ML SUSPENSION UDCUP PO PRN; -MAGNESIUM HYDROXIDE SUSPENSION 30 ML UDCUP PO PRN; -MIRT15 PO; -MIRTAZAPINE 15 MG TABLET PO SCH; +NALT50TA PO; +NALT50TA6 PO; -OLAN10TA3 PO; +OLAN20TA35 PO; +OLAN5TAB30 PO; -OLANZapine 5 MG RAPDIS TABLET PO PRN; -PROMETHAZINE HCL 25 MG TABLET PO PRN; -TUBERCULIN, PURIFIED PROTEIN DERIVATIVE 5 TU/0.1 ML SYRINGE ID ONE; -ZOLPIDEM TARTRATE 10 MG TABLET PO PRN
[2019-02-24] MEDS ORDERED: MAGNESIUM HYDROXIDE SUSPENSION 30 ML UDCUP PO PRN (18:15)
[2019-02-24] MEDS ORDERED: LOPERAMIDE HCL 2 MG CAPSULE PO PRN (18:15)
[2019-02-24] MEDS ORDERED: PROMETHAZINE HCL 25 MG TABLET PO PRN (18:15)
[2019-02-24] MEDS ORDERED: MAG HYDROX/AL HYDROX/SIMETH ES 30 ML SUSPENSION UDCUP PO PRN (18:15)
[2019-02-24] MEDS ORDERED: HydrOXYzine PAMOATE 50 MG CAPSULE PO PRN (18:15)
[2019-02-24] MEDS ORDERED: LORazepam 2 MG TABLET PO PRN (18:15)
[2019-02-24] MEDS ORDERED: ZOLPIDEM TARTRATE 10 MG TABLET PO PRN (18:15)
[2019-02-24] MEDS ORDERED: ACETAMINOPHEN 325 MG TABLET PO PRN (18:15)
[2019-02-24] MEDS ORDERED: OLANZapine 5 MG RAPDIS TABLET PO PRN (18:15)
[2019-02-24] MEDS ORDERED: GuaiFENesin/D-METHORPHAN [SUGAR-FREE] 200-20MG/10 ML SYRUP UDCUP PO PRN (18:15)
[2019-02-24 19:23] VITALS: BP 129/79
[2019-02-24] MEDS ORDERED: PNEUMOCOCCAL VACCINE POLYVALENT 0.5 ML VIAL [PPSV23] IM ONE (20:15)
[2019-02-24] MEDS ORDERED: OLANZapine 5 MG RAPDIS TABLET PO SCH (21:00)
[2019-02-24] MEDS: THIAMINE HCL 100 MG TABLET PO SCH (21:30)
[2019-02-24] MEDS: DIVALPROEX SODIUM 500 MG ER TABLET PO SCH (21:30)
[2019-02-24] MEDS: GABAPENTIN 300 MG CAPSULE PO SCH (21:31)
[2019-02-25 06:05] VITALS: BP 131/80
[2019-02-25 08:24] LABS: BASOPHILS % (AUTO) 0.9 % (0.0-2.0); EOSINOPHILS % (AUTO) 8.5 % (1.0-6.0); HEMATOCRIT 40.7 % (41-53); HEMOGLOBIN 13.6 g/dL (13.5-17.5); LYMPHOCYTES # (AUTO) 1.2 K/uL (1.0-4.8); LYMPHOCYTES % (AUTO) 24.6 % (22.0-44.0); MEAN CORPUSCULAR HEMOGLOBIN 30.5 pg (26.0-34.0); MEAN CORPUSCULAR HGB CONC 33.4 G/dL (31.0-37.0); MEAN CORPUSCULAR VOLUME 92 fL (80-100); MONOCYTES # (AUTO) 0.8 K/uL (0.1-1.0); MONOCYTES % (AUTO) 16.5 % (2.0-9.0); NEUTROPHILS # (AUTO) 2.5 K/uL (1.8-7.7); NEUTROPHILS % (AUTO) 49.5 % (40.0-70.0); PLATELET COUNT (AUTO) 236 K/uL (150-450); RED BLOOD CELL COUNT(AUTO) 4.45 MIL/uL (4.50-5.90); RED CELL DISTRIBUTION WIDTH 13.7 % (11.5-14.5)
[2019-02-25 08:25] VITALS: BP 107/65
[2019-02-25 08:32] LABS: HEMOGLOBIN A1C 5.3 % (4.5-6.2)
[2019-02-25] MEDS: FLUoxetine HCL 20 MG CAPSULE PO SCH (08:37)
[2019-02-25] MEDS: FOLIC ACID 1 MG TABLET PO SCH (08:37)
[2019-02-25] MEDS: GABAPENTIN 300 MG CAPSULE PO SCH ×4 (08:37→20:06)
[2019-02-25] MEDS: MULTIVITAMINS WITH MINERALS, THERAPEUTIC TABLET PO SCH (08:37)
[2019-02-25] MEDS: NALTREXONE HCL 50 MG TABLET PO SCH (08:37)
[2019-02-25] MEDS: THIAMINE HCL 100 MG TABLET PO SCH ×2 (08:37→16:34)
[2019-02-25 08:58] LABS: ALKALINE PHOSPHATASE 75 U/L (46-116); ANION GAP 11 mmol/L (8-16); ASPARTATE AMINOTRANSFERASE 25 U/L (15-37); BILIRUBIN,TOTAL 0.5 mg/dL (0.1-1.0); CALCIUM, TOTAL 8.8 mg/dL (8.8-10.5); CARBON DIOXIDE 27 mmol/L (22-29); CHLORIDE 104 mmol/L (98-107); CREATININE 1.08 mg/dL (0.60-1.30); GLOMERULAR FILTR. RATE CALC > 60 mL/min (>60); GLUCOSE,RANDOM 72 mg/dL (70-110); POTASSIUM 3.6 mmol/L (3.5-5.1); SODIUM SERUM 142 mmol/L (136-145); UREA NITROGEN, BLOOD 13 mg/dL (7-18)
[2019-02-25 08:59] LABS: ALANINE AMINOTRANSFERASE 23 U/L (12-78); ALBUMIN 3.3 g/dL (3.4-5.0); CHOL/HDL RATIO 2.6 (4.2-7.3); CHOLESTEROL 170 mg/dL (131-200); FREE T4 (FREE THYROXINE) 1.22 ng/dL (0.76-1.46); HDL CHOLESTEROL 65 mg/dL (40-60); LDL CHOL (CALC.) 96 mg/dL (0-130); THYROID STIMULATING HORMONE 1.49 uIU/mL (0.36-3.74); TOTAL PROTEIN, SERUM 6.7 g/dL (6.4-8.2); TRIGLYCERIDES 43 mg/dL (15-150)
[2019-02-25 16:14] VITALS: BP 103/69
[2019-02-25] MEDS: DIVALPROEX SODIUM 500 MG ER TABLET PO SCH (20:06)
[2019-02-25] MEDS: OLANZapine 10 MG RAPDIS TABLET PO SCH (20:06)
[2019-02-26 05:56] VITALS: BP 101/63
[2019-02-26 08:18] VITALS: BP 100/57
[2019-02-26] MEDS: FLUoxetine HCL 20 MG CAPSULE PO SCH (09:50)
[2019-02-26] MEDS: THIAMINE HCL 100 MG TABLET PO SCH ×2 (09:50→16:09)
[2019-02-26] MEDS: GABAPENTIN 300 MG CAPSULE PO SCH ×2 (09:50→12:23)
[2019-02-26] MEDS: FOLIC ACID 1 MG TABLET PO SCH (09:50)
[2019-02-26] MEDS: NALTREXONE HCL 50 MG TABLET PO SCH (09:50)
[2019-02-26] MEDS: MULTIVITAMINS WITH MINERALS, THERAPEUTIC TABLET PO SCH (09:50)
[2019-02-26 15:58] VITALS: BP 102/63
[2019-02-26 16:00] VITALS: BP 102/63
[2019-02-26] MEDS: GABAPENTIN 400 MG CAPSULE PO SCH ×2 (16:09→20:22)
[2019-02-26] MEDS ORDERED: PENICILLIN G BENZATHINE LA 2,400,000 UNITS/4 ML SYRINGE IM ONE (17:30)
[2019-02-26] MEDS: DIVALPROEX SODIUM 500 MG ER TABLET PO SCH (20:22)
[2019-02-26] MEDS: OLANZapine 10 MG RAPDIS TABLET PO SCH (20:23)
[2019-02-27 00:33] VITALS: BP 110/72
[2019-02-27 08:00] VITALS: BP 99/60
[2019-02-27] MEDS: FLUoxetine HCL 20 MG CAPSULE PO SCH (09:50)
[2019-02-27] MEDS: NALTREXONE HCL 50 MG TABLET PO SCH (09:50)
[2019-02-27] MEDS: MULTIVITAMINS WITH MINERALS, THERAPEUTIC TABLET PO SCH (09:50)
[2019-02-27] MEDS: THIAMINE HCL 100 MG TABLET PO SCH ×2 (09:50→16:01)
[2019-02-27] MEDS: GABAPENTIN 400 MG CAPSULE PO SCH ×2 (09:50→12:39)
[2019-02-27] MEDS: FOLIC ACID 1 MG TABLET PO SCH (09:51)
[2019-02-27 09:52] VITALS: BP 99/60
[2019-02-27 10:04] LABS: AMPHET/METH SCREEN,URINE NEGATIVE (NEGATIVE); BARBITURATE SCREEN, URINE NEGATIVE (NEGATIVE); BENZODIAZEPINES SCREEN,URINE NEGATIVE (NEGATIVE); CANNABINOID SCREEN,URINE NEGATIVE (NEGATIVE); COCAINE SCREEN,URINE NEGATIVE (NEGATIVE); METHADONE SCREEN, URINE NEGATIVE (NEGATIVE); OPIATE SCREEN,URINE NEGATIVE (NEGATIVE)
[2019-02-27 10:10] LABS: APPEARANCE,URINE CLEAR (CLEAR); BILIRUBIN,URINE NEGATIVE (NEGATIVE); GLUCOSE, URINE (UA) NEGATIVE (NEGATIVE); KETONES,URINE NEGATIVE (NEGATIVE); LEUKOCYTE ESTERASE ,URINE NEGATIVE (NEGATIVE); NITRATE,URINE NEGATIVE (NEGATIVE); OCCULT BLOOD,URINE NEGATIVE (NEGATIVE); PROTEIN,URINE NEGATIVE (NEGATIVE); UROBILINOGEN,URINE 0.2 mg/dL (<=1.0)
[2019-02-27 10:28] LABS: PHENCYCLIDINE SCREEN,URINE NEGATIVE (NEGATIVE)
[2019-02-27 16:00] VITALS: BP 104/68
[2019-02-27] MEDS: GABAPENTIN 300 MG CAPSULE PO SCH (16:01)
[2019-02-27] MEDS: DIVALPROEX SODIUM 500 MG ER TABLET PO SCH (20:12)
[2019-02-27] MEDS: OLANZapine 10 MG RAPDIS TABLET PO SCH (20:12)
[2019-02-28 00:21] VITALS: BP 109/66
[2019-02-28 08:00] LABS: HIV 1-2 SCREEN 4TH GEN W/RFLX Non Reactive (Non Reactive)
[2019-02-28 08:04] VITALS: BP 110/63
[2019-02-28] MEDS: MULTIVITAMINS WITH MINERALS, THERAPEUTIC TABLET PO SCH (08:22)
[2019-02-28] MEDS: FLUoxetine HCL 20 MG CAPSULE PO SCH (08:23)
[2019-02-28] MEDS: GABAPENTIN 300 MG CAPSULE PO SCH ×3 (08:23→16:35)
[2019-02-28] MEDS: THIAMINE HCL 100 MG TABLET PO SCH ×2 (08:23→16:35)
[2019-02-28] MEDS: NALTREXONE HCL 50 MG TABLET PO SCH (08:23)
[2019-02-28] MEDS: FOLIC ACID 1 MG TABLET PO SCH (08:23)
[2019-02-28 16:09] VITALS: BP 109/74
[2019-02-28] MEDS: DIVALPROEX SODIUM 500 MG ER TABLET PO SCH (20:09)
[2019-02-28] MEDS: OLANZapine 10 MG RAPDIS TABLET PO SCH (20:09)
[2019-03-01 06:31] VITALS: BP 103/68
[2019-03-01 08:11] VITALS: BP 122/84
[2019-03-01] MEDS: GABAPENTIN 300 MG CAPSULE PO SCH ×3 (08:52→16:02)
[2019-03-01] MEDS: FOLIC ACID 1 MG TABLET PO SCH (08:52)
[2019-03-01] MEDS: MULTIVITAMINS WITH MINERALS, THERAPEUTIC TABLET PO SCH (08:52)
[2019-03-01] MEDS: FLUoxetine HCL 20 MG CAPSULE PO SCH (08:53)
[2019-03-01] MEDS: NALTREXONE HCL 50 MG TABLET PO SCH (08:53)
[2019-03-01] MEDS: THIAMINE HCL 100 MG TABLET PO SCH ×2 (08:53→16:02)
[2019-03-01 16:00] VITALS: BP 101/60
[2019-03-01] MEDS: OLANZapine 10 MG RAPDIS TABLET PO SCH (20:06)
[2019-03-01] MEDS: DIVALPROEX SODIUM 500 MG ER TABLET PO SCH (20:06)
[2019-03-02 05:17] VITALS: BP 109/69
[2019-03-02 08:12] VITALS: BP 106/66
[2019-03-02] MEDS: FOLIC ACID 1 MG TABLET PO SCH (08:37)
[2019-03-02] MEDS: THIAMINE HCL 100 MG TABLET PO SCH (08:37)
[2019-03-02] MEDS: MULTIVITAMINS WITH MINERALS, THERAPEUTIC TABLET PO SCH (08:37)
[2019-03-02] MEDS: FLUoxetine HCL 20 MG CAPSULE PO SCH (08:37)
[2019-03-02] MEDS: NALTREXONE HCL 50 MG TABLET PO SCH (08:37)
[2019-03-02] MEDS: GABAPENTIN 300 MG CAPSULE PO SCH ×2 (08:37→12:50)
[2019-03-02] MEDS ORDERED: FLUO-191 PO (10:29)
[2019-03-02] MEDS ORDERED: OLAN10TA6 PO (10:29)
[2019-03-02] MEDS ORDERED: GABA-531 PO (10:29)
== END 2019-03-02 13:53 | disposition home or self-care (01) | DRG 750 ==
LOC: B2S 19:30
PROVIDERS: ADMIT Psychiatry & Neurology Psychiatry; ATTEND Psychiatry & Neurology Psychiatry
DX: F25.1 Schizoaffective disorder, depressive type (principal); R45.851 Suicidal ideations; Z59.0 Homelessness; Z91.19 Patient's noncompliance with other medical treatment and regimen; F10.10 Alcohol abuse, uncomplicated; F17.200 Nicotine dependence, unspecified, uncomplicated; Z65.3 Problems related to other legal circumstances; Z81.8 Family history of other mental and behavioral disorders; Z82.49 Family history of ischemic heart disease and other diseases of the circulatory system; Z56.0 Unemployment, unspecified; Z63.9 Problem related to primary support group, unspecified; Z59.9 Problem related to housing and economic circumstances, unspecified
CPT/HCPCS: 80307; 83036; 84439; 84443; 86592; 86593; 86780; 87389; 87491; 87591; J0561

== ENCOUNTER 2019-04-20 11:30 | Inpatient (IN) | payer MEDICAID ==
[~2019-04-20] VITALS: Ht 180.3 cm; Wt 79.9 kg
[~2019-04-20 11:30] MED LIST changes: +FLUO-191 PO; -NALT50TA PO; +OLAN10TA6 PO; -OLAN20TA35 PO; -OLAN5TAB30 PO
[2019-04-20] MEDS ORDERED: ZOLPIDEM TARTRATE 10 MG TABLET PO PRN (17:00)
[2019-04-20 17:44] VITALS: BP 132/93
[2019-04-20] MEDS ORDERED: PNEUMOCOCCAL VACCINE POLYVALENT 0.5 ML VIAL [PPSV23] IM ONE (18:00)
[2019-04-20] MEDS ORDERED: OLAN10TA3 PO (20:14)
[2019-04-20] MEDS ORDERED: GABA-531 PO (20:14)
[2019-04-20] MEDS ORDERED: BUSP10TA23 PO (20:14)
[2019-04-20] MEDS ORDERED: MIRT15 PO (20:14)
[2019-04-20] MEDS ORDERED: MAG HYDROX/AL HYDROX/SIMETH ES 30 ML SUSPENSION UDCUP PO PRN (22:00)
[2019-04-20] MEDS ORDERED: CloNIDine HCL 0.1 MG TABLET PO PRN (22:00)
[2019-04-20] MEDS ORDERED: ALBUTEROL SULFATE HFA 90 MCG/PUFF 8 GM INHALER IH PRN (22:00)
[2019-04-20] MEDS ORDERED: GuaiFENesin/D-METHORPHAN [SUGAR-FREE] 200-20MG/10 ML SYRUP UDCUP PO PRN (22:00)
[2019-04-20] MEDS ORDERED: MAGNESIUM HYDROXIDE SUSPENSION 30 ML UDCUP PO PRN (22:00)
[2019-04-20] MEDS ORDERED: ACETAMINOPHEN 325 MG TABLET PO PRN (22:00)
[2019-04-20] MEDS ORDERED: IBUPROFEN 400 MG TABLET PO PRN (22:00)
[2019-04-20] MEDS ORDERED: ONDANSETRON HCL 4 MG TABLET PO PRN (22:00)
[2019-04-20] MEDS ORDERED: DOCUSATE SODIUM 100 MG CAPSULE PO PRN (22:00)
[2019-04-20] MEDS ORDERED: NICOTINE 14 MG/24 HOUR PATCH TD PRN (22:00)
[2019-04-20] MEDS ORDERED: LOPERAMIDE HCL 2 MG CAPSULE PO PRN (22:00)
[2019-04-20] MEDS ORDERED: PETROLATUM,WHITE 28 GM JELLY TP PRN (22:00)
[2019-04-20] MEDS: HALOPERIDOL 5 MG TABLET PO PRN (22:25)
[2019-04-20] MEDS: LORazepam 2 MG TABLET PO PRN (22:25)
[2019-04-21 04:38] VITALS: BP 128/86
[2019-04-21 08:13] VITALS: BP 89/50
[2019-04-21 08:22] LABS: BASOPHILS % (AUTO) 0.9 % (0.0-2.0); EOSINOPHILS % (AUTO) 7.4 % (1.0-6.0); HEMATOCRIT 44.1 % (41-53); LYMPHOCYTES # (AUTO) 1.4 K/uL (1.0-4.8); LYMPHOCYTES % (AUTO) 31.4 % (22.0-44.0); MEAN CORPUSCULAR HEMOGLOBIN 30.5 pg (26.0-34.0); MEAN CORPUSCULAR VOLUME 90 fL (80-100); MONOCYTES # (AUTO) 0.4 K/uL (0.1-1.0); MONOCYTES % (AUTO) 9.8 % (2.0-9.0); NEUTROPHILS # (AUTO) 2.3 K/uL (1.8-7.7); NEUTROPHILS % (AUTO) 50.5 % (40.0-70.0); PLATELET COUNT (AUTO) 262 K/uL (150-450); RED BLOOD CELL COUNT(AUTO) 4.92 MIL/uL (4.50-5.90); RED CELL DISTRIBUTION WIDTH 13.3 % (11.5-14.5)
[2019-04-21 09:13] LABS: ALANINE AMINOTRANSFERASE 24 U/L (12-78); ALBUMIN 3.6 g/dL (3.4-5.0); ALKALINE PHOSPHATASE 69 U/L (46-116); ANION GAP 8 mmol/L (8-16); ASPARTATE AMINOTRANSFERASE 23 U/L (15-37); BILIRUBIN,TOTAL 0.6 mg/dL (0.1-1.0); CALCIUM, TOTAL 8.9 mg/dL (8.8-10.5); CARBON DIOXIDE 30 mmol/L (22-29); CHLORIDE 101 mmol/L (98-107); CHOL/HDL RATIO 2.5 (4.2-7.3); CHOLESTEROL 202 mg/dL (131-200); CREATININE 0.98 mg/dL (0.60-1.30); FREE T4 (FREE THYROXINE) 0.99 ng/dL (0.76-1.46); GLOMERULAR FILTR. RATE CALC > 60 mL/min (>60); GLUCOSE,RANDOM 97 mg/dL (70-110); HDL CHOLESTEROL 81 mg/dL (40-60); LDL CHOL (CALC.) 113 mg/dL (0-130); POTASSIUM 3.8 mmol/L (3.5-5.1); SODIUM SERUM 139 mmol/L (136-145); THYROID STIMULATING HORMONE 2.26 uIU/mL (0.36-3.74); TOTAL PROTEIN, SERUM 7.3 g/dL (6.4-8.2); TRIGLYCERIDES 41 mg/dL (15-150); UREA NITROGEN, BLOOD 15 mg/dL (7-18)
[2019-04-21] MEDS: BusPIRone HCL 10 MG TABLET PO SCH ×2 (13:31→16:06)
[2019-04-21 16:03] VITALS: BP 108/67
[2019-04-21] MEDS: OLANZapine 10 MG TABLET PO SCH (20:55)
[2019-04-21] MEDS: GABAPENTIN 300 MG CAPSULE PO SCH (20:55)
[2019-04-21] MEDS: MIRTAZAPINE 15 MG TABLET PO SCH (20:55)
[2019-04-22 05:22] VITALS: BP 112/71
[2019-04-22 08:08] VITALS: BP 135/62
[2019-04-22] MEDS: BusPIRone HCL 10 MG TABLET PO SCH ×2 (08:36→16:28)
[2019-04-22 16:04] VITALS: BP 106/68
[2019-04-22] MEDS: MIRTAZAPINE 15 MG TABLET PO SCH (20:12)
[2019-04-22] MEDS: GABAPENTIN 300 MG CAPSULE PO SCH (20:13)
[2019-04-22] MEDS: OLANZapine 10 MG TABLET PO SCH (20:13)
[2019-04-23 06:07] VITALS: BP 100/61
[2019-04-23] MEDS: BusPIRone HCL 10 MG TABLET PO SCH ×2 (08:06→16:07)
[2019-04-23 08:34] VITALS: BP 131/75
[2019-04-23 16:10] VITALS: BP 128/74
[2019-04-23] MEDS: GABAPENTIN 300 MG CAPSULE PO SCH (20:23)
[2019-04-23] MEDS: MIRTAZAPINE 15 MG TABLET PO SCH (20:23)
[2019-04-23] MEDS: OLANZapine 10 MG TABLET PO SCH (20:23)
[2019-04-24 07:11] VITALS: BP 100/60
[2019-04-24 08:21] VITALS: BP 100/68
[2019-04-24] MEDS: BusPIRone HCL 10 MG TABLET PO SCH ×2 (08:58→16:53)
[2019-04-24 16:05] VITALS: BP 113/72
[2019-04-24] MEDS: HALOPERIDOL 5 MG TABLET PO PRN (16:53)
[2019-04-24] MEDS: LORazepam 2 MG TABLET PO PRN (16:53)
[2019-04-24] MEDS: OLANZapine 10 MG TABLET PO SCH (21:00)
[2019-04-24] MEDS: MIRTAZAPINE 15 MG TABLET PO SCH (21:00)
[2019-04-24] MEDS: GABAPENTIN 300 MG CAPSULE PO SCH (21:00)
[2019-04-25 06:16] VITALS: BP 101/67
[2019-04-25 08:00] VITALS: BP 116/54
[2019-04-25] MEDS: BusPIRone HCL 10 MG TABLET PO SCH ×2 (08:59→16:37)
[2019-04-25 16:22] VITALS: BP 138/79
[2019-04-25] MEDS: LORazepam 2 MG TABLET PO PRN (16:37)
[2019-04-25] MEDS: GABAPENTIN 300 MG CAPSULE PO SCH (20:18)
[2019-04-25] MEDS: MIRTAZAPINE 15 MG TABLET PO SCH (20:18)
[2019-04-25] MEDS: OLANZapine 10 MG TABLET PO SCH (20:18)
[2019-04-26 07:00] VITALS: BP 101/61
[2019-04-26 08:17] VITALS: BP 98/62
[2019-04-26] MEDS: BusPIRone HCL 10 MG TABLET PO SCH ×2 (08:45→16:35)
[2019-04-26 12:30] VITALS: BP 106/80
[2019-04-26 16:17] VITALS: BP 118/85
[2019-04-26] MEDS: GABAPENTIN 300 MG CAPSULE PO SCH (20:35)
[2019-04-26] MEDS: MIRTAZAPINE 15 MG TABLET PO SCH (20:35)
[2019-04-26] MEDS: OLANZapine 10 MG TABLET PO SCH (20:35)
[2019-04-27 05:02] VITALS: BP 115/80
[2019-04-27 08:20] VITALS: BP 135/88
[2019-04-27] MEDS: HALOPERIDOL 5 MG TABLET PO PRN (08:43)
[2019-04-27] MEDS: BusPIRone HCL 10 MG TABLET PO SCH (08:43)
== END 2019-04-27 13:59 | disposition home or self-care (01) | DRG 750 ==
LOC: B3A 17:30
PROVIDERS: ADMIT Psychiatry & Neurology Psychiatry; ATTEND Psychiatry & Neurology Psychiatry
DX: F25.9 Schizoaffective disorder, unspecified (principal); R45.851 Suicidal ideations; Z59.0 Homelessness; E78.5 Hyperlipidemia, unspecified; F10.10 Alcohol abuse, uncomplicated; Y90.9 Presence of alcohol in blood, level not specified; F32.9 Major depressive disorder, single episode, unspecified; I12.9 Hypertensive chronic kidney disease with stage 1 through stage 4 chronic kidney disease, or unspecified chronic kidney disease; N18.9 Chronic kidney disease, unspecified; Z79.899 Other long term (current) drug therapy; Z87.891 Personal history of nicotine dependence; Z91.14 Patient's other noncompliance with medication regimen; Z91.5 Personal history of self-harm; Z53.20 Procedure and treatment not carried out because of patient's decision for unspecified reasons
CPT/HCPCS: 83036; 84439; 84443; 90732

== ENCOUNTER 2019-07-02 14:24 | Inpatient (IN) | payer MEDICAID ==
[~2019-07-02] VITALS: Ht 180.3 cm; Wt 82.6 kg
[~2019-07-02 14:24] MED LIST changes: +BUSP10TA23 PO; -DIVA500T52 PO; -FLUO-191 PO; +MIRT-92 PO; -NALT50TA6 PO; +OLAN10TA3 PO; -OLAN10TA6 PO
[2019-07-02] MEDS ORDERED: HALOPERIDOL 5 MG TABLET PO PRN (16:30)
[2019-07-02 16:38] VITALS: BP 143/82
[2019-07-02] MEDS ORDERED: PNEUMOCOCCAL VACCINE POLYVALENT 0.5 ML VIAL [PPSV23] IM ONE (17:00)
[2019-07-02] MEDS ORDERED: IBUPROFEN 400 MG TABLET PO PRN (21:15)
[2019-07-02 21:35] VITALS: BP 124/83
[2019-07-02] MEDS: LORazepam 2 MG TABLET PO PRN (22:04)
[2019-07-03 08:39] LABS: BASOPHILS % (AUTO) 0.8 % (0.0-2.0); HEMATOCRIT 40.8 % (41-53); HEMOGLOBIN 13.7 g/dL (13.5-17.5); LYMPHOCYTES # (AUTO) 1.3 K/uL (1.0-4.8); LYMPHOCYTES % (AUTO) 17.4 % (22.0-44.0); MEAN CORPUSCULAR HEMOGLOBIN 30.1 pg (26.0-34.0); MEAN CORPUSCULAR HGB CONC 33.6 G/dL (31.0-37.0); MEAN CORPUSCULAR VOLUME 90 fL (80-100); MONOCYTES # (AUTO) 0.7 K/uL (0.1-1.0); MONOCYTES % (AUTO) 8.8 % (2.0-9.0); NEUTROPHILS # (AUTO) 5.1 K/uL (1.8-7.7); PLATELET COUNT (AUTO) 310 K/uL (150-450); RED BLOOD CELL COUNT(AUTO) 4.55 MIL/uL (4.50-5.90); RED CELL DISTRIBUTION WIDTH 13.8 % (11.5-14.5)
[2019-07-03 08:46] VITALS: BP 119/78
[2019-07-03] MEDS: NICOTINE 14 MG/24 HOUR PATCH TD SCH (08:55)
[2019-07-03 09:11] LABS: HEMOGLOBIN A1C 5.5 % (4.5-6.2)
[2019-07-03 09:13] LABS: ALANINE AMINOTRANSFERASE 33 U/L (12-78); ALBUMIN 3.7 g/dL (3.4-5.0); ALKALINE PHOSPHATASE 75 U/L (46-116); ANION GAP 6 mmol/L (8-16); ASPARTATE AMINOTRANSFERASE 42 U/L (15-37); BILIRUBIN,TOTAL 0.9 mg/dL (0.1-1.0); CALCIUM, TOTAL 8.7 mg/dL (8.8-10.5); CARBON DIOXIDE 29 mmol/L (22-29); CHLORIDE 100 mmol/L (98-107); CHOL/HDL RATIO 2.4 (4.2-7.3); CHOLESTEROL 176 mg/dL (131-200); CREATININE 1.05 mg/dL (0.60-1.30); FREE T4 (FREE THYROXINE) 1.03 ng/dL (0.76-1.46); GLOMERULAR FILTR. RATE CALC > 60 mL/min (>60); GLUCOSE,RANDOM 64 mg/dL (70-110); HDL CHOLESTEROL 73 mg/dL (40-60); LDL CHOL (CALC.) 97 mg/dL (0-130); POTASSIUM 4.1 mmol/L (3.5-5.1); SODIUM SERUM 135 mmol/L (136-145); THYROID STIMULATING HORMONE 2.23 uIU/mL (0.36-3.74); TOTAL PROTEIN, SERUM 6.6 g/dL (6.4-8.2); TRIGLYCERIDES 30 mg/dL (15-150); UREA NITROGEN, BLOOD 17 mg/dL (7-18)
[2019-07-03] MEDS ORDERED: GuaiFENesin/D-METHORPHAN [SUGAR-FREE] 200-20MG/10 ML SYRUP UDCUP PO PRN (15:15)
[2019-07-03] MEDS ORDERED: LOPERAMIDE HCL 2 MG CAPSULE PO PRN (15:15)
[2019-07-03] MEDS ORDERED: DOCUSATE SODIUM 100 MG CAPSULE PO PRN (15:15)
[2019-07-03] MEDS ORDERED: IBUPROFEN 400 MG TABLET PO PRN (15:15)
[2019-07-03] MEDS ORDERED: PETROLATUM,WHITE 28 GM JELLY TP PRN (15:15)
[2019-07-03] MEDS ORDERED: ALBUTEROL SULFATE HFA 90 MCG/PUFF 8 GM INHALER IH PRN (15:15)
[2019-07-03] MEDS ORDERED: NICOTINE 14 MG/24 HOUR PATCH TD PRN (15:15)
[2019-07-03] MEDS ORDERED: MAG HYDROX/AL HYDROX/SIMETH ES 30 ML SUSPENSION UDCUP PO PRN (15:15)
[2019-07-03] MEDS ORDERED: MAGNESIUM HYDROXIDE SUSPENSION 30 ML UDCUP PO PRN (15:15)
[2019-07-03] MEDS ORDERED: ACETAMINOPHEN 325 MG TABLET PO PRN (15:15)
[2019-07-03] MEDS ORDERED: CloNIDine HCL 0.1 MG TABLET PO PRN (15:15)
[2019-07-03] MEDS ORDERED: ONDANSETRON HCL 4 MG TABLET PO PRN (15:15)
[2019-07-03 17:24] VITALS: BP 109/63
[2019-07-03] MEDS: BusPIRone HCL 10 MG TABLET PO SCH (17:26)
[2019-07-03] MEDS: GABAPENTIN 300 MG CAPSULE PO SCH (17:26)
[2019-07-03] MEDS: MIRTAZAPINE 15 MG TABLET PO SCH (21:54)
[2019-07-03] MEDS: OLANZapine 10 MG TABLET PO SCH (21:54)
[2019-07-04 00:12] VITALS: BP 131/77
[2019-07-04 08:22] VITALS: BP 105/63
[2019-07-04] MEDS: GABAPENTIN 300 MG CAPSULE PO SCH ×2 (08:52→16:30)
[2019-07-04] MEDS: NICOTINE 14 MG/24 HOUR PATCH TD SCH (08:52)
[2019-07-04] MEDS: BusPIRone HCL 10 MG TABLET PO SCH ×2 (08:52→16:31)
[2019-07-04] MEDS: BuPROPion HCL XL 150 MG ER TABLET PO SCH (13:01)
[2019-07-04 16:13] VITALS: BP 102/60
[2019-07-04] MEDS: MIRTAZAPINE 15 MG TABLET PO SCH (20:37)
[2019-07-04] MEDS: OLANZapine 10 MG TABLET PO SCH (20:37)
[2019-07-05 05:26] VITALS: BP 101/67
[2019-07-05] MEDS: GABAPENTIN 300 MG CAPSULE PO SCH ×2 (09:09→16:41)
[2019-07-05] MEDS: BuPROPion HCL XL 150 MG ER TABLET PO SCH ×2 (09:09→09:21)
[2019-07-05] MEDS: NICOTINE 14 MG/24 HOUR PATCH TD SCH (09:11)
[2019-07-05] MEDS: BusPIRone HCL 10 MG TABLET PO SCH ×2 (09:22→16:41)
[2019-07-05 10:25] VITALS: BP 100/62
[2019-07-05] MEDS: LORazepam 2 MG TABLET PO PRN (11:02)
[2019-07-05 16:28] VITALS: BP 103/64
[2019-07-05] MEDS: MIRTAZAPINE 15 MG TABLET PO SCH (20:17)
[2019-07-05] MEDS: OLANZapine 10 MG TABLET PO SCH (20:17)
[2019-07-06 02:00] VITALS: BP 101/6
[2019-07-06] MEDS: GABAPENTIN 300 MG CAPSULE PO SCH ×2 (08:30→16:07)
[2019-07-06] MEDS: BusPIRone HCL 10 MG TABLET PO SCH ×2 (08:30→16:07)
[2019-07-06] MEDS: NICOTINE 14 MG/24 HOUR PATCH TD SCH (08:30)
[2019-07-06 09:03] VITALS: BP 104/63
[2019-07-06 16:23] VITALS: BP 111/64
[2019-07-06] MEDS: MIRTAZAPINE 15 MG TABLET PO SCH (20:14)
[2019-07-06] MEDS: OLANZapine 10 MG TABLET PO SCH (20:14)
[2019-07-07 07:04] VITALS: BP 114/73
[2019-07-07 08:54] VITALS: BP_SYST 119; BP_SYST 128; BP_DIAS 64
[2019-07-07] MEDS: BusPIRone HCL 10 MG TABLET PO SCH ×2 (09:05→16:07)
[2019-07-07] MEDS: GABAPENTIN 300 MG CAPSULE PO SCH ×2 (09:05→16:06)
[2019-07-07] MEDS: NICOTINE 14 MG/24 HOUR PATCH TD SCH (09:05)
[2019-07-07] MEDS: BuPROPion HCL XL 150 MG ER TABLET PO SCH (09:05)
[2019-07-07 16:17] VITALS: BP 105/63
[2019-07-07] MEDS: OLANZapine 10 MG TABLET PO SCH (20:23)
[2019-07-07] MEDS: MIRTAZAPINE 15 MG TABLET PO SCH (20:23)
[2019-07-07] MEDS: ZOLPIDEM TARTRATE 10 MG TABLET PO PRN (21:18)
[2019-07-08 00:55] VITALS: BP 117/72
[2019-07-08 08:48] VITALS: BP 111/74
[2019-07-08] MEDS: NICOTINE 14 MG/24 HOUR PATCH TD SCH (09:51)
[2019-07-08] MEDS: GABAPENTIN 300 MG CAPSULE PO SCH ×2 (09:51→17:03)
[2019-07-08] MEDS: BuPROPion HCL XL 150 MG ER TABLET PO SCH (09:51)
[2019-07-08] MEDS: BusPIRone HCL 10 MG TABLET PO SCH ×2 (09:51→17:03)
[2019-07-08 16:20] VITALS: BP 124/69
[2019-07-08] MEDS: MIRTAZAPINE 15 MG TABLET PO SCH (20:41)
[2019-07-08] MEDS: OLANZapine 10 MG TABLET PO SCH (20:41)
[2019-07-08] MEDS: ZOLPIDEM TARTRATE 10 MG TABLET PO PRN (20:42)
[2019-07-09 06:27] VITALS: BP 104/65
[2019-07-09] MEDS: GABAPENTIN 300 MG CAPSULE PO SCH ×2 (08:16→17:14)
[2019-07-09] MEDS: BusPIRone HCL 10 MG TABLET PO SCH ×2 (08:16→17:14)
[2019-07-09] MEDS: NICOTINE 14 MG/24 HOUR PATCH TD SCH (08:16)
[2019-07-09] MEDS: BuPROPion HCL XL 150 MG ER TABLET PO SCH (08:16)
[2019-07-09 08:30] VITALS: BP 109/71
[2019-07-09 16:24] VITALS: BP 114/66
[2019-07-09] MEDS: MIRTAZAPINE 15 MG TABLET PO SCH (20:08)
[2019-07-09] MEDS: OLANZapine 10 MG TABLET PO SCH (20:08)
[2019-07-10 00:20] VITALS: BP 109/60
[2019-07-10 08:19] VITALS: BP 108/64
[2019-07-10] MEDS: GABAPENTIN 300 MG CAPSULE PO SCH ×2 (08:28→16:35)
[2019-07-10] MEDS: BuPROPion HCL XL 150 MG ER TABLET PO SCH (08:28)
[2019-07-10] MEDS: BusPIRone HCL 10 MG TABLET PO SCH ×2 (08:28→16:35)
[2019-07-10] MEDS: NICOTINE 14 MG/24 HOUR PATCH TD SCH (08:28)
[2019-07-10 16:19] VITALS: BP 116/61
[2019-07-10] MEDS: MIRTAZAPINE 15 MG TABLET PO SCH (20:34)
[2019-07-10] MEDS: OLANZapine 10 MG TABLET PO SCH (20:34)
[2019-07-11 06:47] VITALS: BP 109/71
[2019-07-11] MEDS: GABAPENTIN 300 MG CAPSULE PO SCH (08:24)
[2019-07-11] MEDS: BusPIRone HCL 10 MG TABLET PO SCH (08:24)
[2019-07-11] MEDS: BuPROPion HCL XL 150 MG ER TABLET PO SCH (08:25)
[2019-07-11] MEDS: NICOTINE 14 MG/24 HOUR PATCH TD SCH (08:25)
[2019-07-11 09:05] VITALS: BP 106/64
[2019-07-11] MEDS ORDERED: GABA-531 PO (11:13)
[2019-07-11] MEDS ORDERED: BUPR-93 PO (11:14)
[2019-08-24] MEDS ORDERED: MIRT-92 PO (04:44)
[2019-08-24] MEDS ORDERED: BUSP10TA23 PO (04:44)
[2019-08-24] MEDS ORDERED: OLAN5TAB2 PO (04:44)
[2019-08-24] MEDS ORDERED: BUPR300T53 PO (13:10)
[2019-08-24] MEDS ORDERED: OLAN10TA3 PO (13:10)
[2019-08-24] MEDS ORDERED: GABA-531 PO (13:10)
== END 2019-07-11 13:00 | disposition home or self-care (01) | DRG 750 ==
LOC: B2S 16:33
PROVIDERS: ADMIT Psychiatry & Neurology Psychiatry; ATTEND Psychiatry & Neurology Psychiatry
PROC: 3E0234Z Introduction of Serum, Toxoid and Vaccine into Muscle, Percutaneous Approach (ICD-10-PCS; principal; 2019-07-02)
DX: F25.9 Schizoaffective disorder, unspecified (principal); G40.909 Epilepsy, unspecified, not intractable, without status epilepticus; R45.851 Suicidal ideations; R74.0 Nonspecific elevation of levels of transaminase and lactic acid dehydrogenase [LDH]; I10 Essential (primary) hypertension; F14.10 Cocaine abuse, uncomplicated; F15.10 Other stimulant abuse, uncomplicated; E78.5 Hyperlipidemia, unspecified; Z23 Encounter for immunization; Z59.0 Homelessness; Z71.51 Drug abuse counseling and surveillance of drug abuser; Z72.89 Other problems related to lifestyle
CPT/HCPCS: 83036; 84439; 84443; 90732

== ENCOUNTER 2019-09-05 03:57 | Emergency (ER) | payer MEDICAID ==
[~2019-09-05] VITALS: Ht 180.3 cm; Wt 84.1 kg
[~2019-09-05 03:57] MED LIST changes: +BUPR-47 PO; -MIRT-92 PO; +MIRT15TA6 PO; +OLAN10TA20 PO; -OLAN10TA3 PO
[2019-09-05 04:46] VITALS: BP 133/75
[2019-09-05 05:18] LABS: AMPHET/METH SCREEN,URINE POSITIVE (NEGATIVE); BARBITURATE SCREEN, URINE NEGATIVE (NEGATIVE); BENZODIAZEPINES SCREEN,URINE NEGATIVE (NEGATIVE); CANNABINOID SCREEN,URINE POSITIVE (NEGATIVE); COCAINE SCREEN,URINE NEGATIVE (NEGATIVE); METHADONE SCREEN, URINE NEGATIVE (NEGATIVE); OPIATE SCREEN,URINE NEGATIVE (NEGATIVE)
[2019-09-05 05:19] LABS: PHENCYCLIDINE SCREEN,URINE NEGATIVE (NEGATIVE)
[2019-09-05 05:20] LABS: BASOPHILS % (AUTO) 0.6 % (0.0-2.0); EOSINOPHILS % (AUTO) 3.2 % (1.0-6.0); HEMATOCRIT 40.5 % (41-53); HEMOGLOBIN 13.7 g/dL (13.5-17.5); LYMPHOCYTES # (AUTO) 1.5 K/uL (1.0-4.8); LYMPHOCYTES % (AUTO) 16.1 % (22.0-44.0); MEAN CORPUSCULAR HEMOGLOBIN 30.1 pg (26.0-34.0); MEAN CORPUSCULAR HGB CONC 33.9 G/dL (31.0-37.0); MEAN CORPUSCULAR VOLUME 89 fL (80-100); MONOCYTES # (AUTO) 1.2 K/uL (0.1-1.0); MONOCYTES % (AUTO) 12.6 % (2.0-9.0); NEUTROPHILS # (AUTO) 6.4 K/uL (1.8-7.7); NEUTROPHILS % (AUTO) 67.5 % (40.0-70.0); PLATELET COUNT (AUTO) 260 K/uL (150-450); RED BLOOD CELL COUNT(AUTO) 4.55 MIL/uL (4.50-5.90); RED CELL DISTRIBUTION WIDTH 13.5 % (11.5-14.5)
[2019-09-05 05:27] LABS: ANION GAP 9 mmol/L (8-16); CALCIUM, TOTAL 9.3 mg/dL (8.8-10.5); CARBON DIOXIDE 30 mmol/L (22-29); CHLORIDE 99 mmol/L (98-107); CREATININE 1.17 mg/dL (0.60-1.30); GLOMERULAR FILTR. RATE CALC > 60 mL/min (>60); GLUCOSE,RANDOM 96 mg/dL (70-110); POTASSIUM 3.8 mmol/L (3.5-5.1); SODIUM SERUM 138 mmol/L (136-145); UREA NITROGEN, BLOOD 16 mg/dL (7-18)
[2019-09-05 05:34] LABS: ALANINE AMINOTRANSFERASE 85 U/L (12-78); ALBUMIN 4.1 g/dL (3.4-5.0); ALKALINE PHOSPHATASE 82 U/L (46-116); ASPARTATE AMINOTRANSFERASE 65 U/L (15-37); BILIRUBIN,TOTAL 0.9 mg/dL (0.1-1.0); TOTAL PROTEIN, SERUM 7.5 g/dL (6.4-8.2)
== END 2019-09-05 06:14 | disposition home or self-care (01) ==
LOC: EMS 03:57
DX: R45.851 Suicidal ideations (principal); F31.9 Bipolar disorder, unspecified; F41.9 Anxiety disorder, unspecified; I10 Essential (primary) hypertension; F20.9 Schizophrenia, unspecified; F12.90 Cannabis use, unspecified, uncomplicated; F15.90 Other stimulant use, unspecified, uncomplicated; F17.210 Nicotine dependence, cigarettes, uncomplicated; Z79.899 Other long term (current) drug therapy
CPT/HCPCS: 36415; 80053; 80307; 85025; 99283; G0480

== ENCOUNTER 2019-11-25 14:01 | Inpatient (IN) | payer MEDICAID ==
[~2019-11-25] VITALS: Ht 172.7 cm; Wt 85.0 kg
[~2019-11-25 14:01] MED LIST changes: -BUPR-47 PO; +BUPR300T53 PO; +GABA-1181 PO; -GABA-531 PO; +MIRT-89 PO; -MIRT15TA6 PO; -OLAN10TA20 PO; +OLAN10TA3 PO
[2019-11-25] MEDS ORDERED: ZOLPIDEM TARTRATE 10 MG TABLET PO PRN (15:30)
[2019-11-25] MEDS ORDERED: LORazepam 2 MG TABLET PO PRN (15:30)
[2019-11-25] MEDS ORDERED: HALOPERIDOL 5 MG TABLET PO PRN (15:30)
[2019-11-25 16:09] LABS: ANION GAP 12 mmol/L (8-16); CALCIUM, TOTAL 8.9 mg/dL (8.8-10.5); CARBON DIOXIDE 24 mmol/L (22-29); CHLORIDE 103 mmol/L (98-107); CREATININE 0.91 mg/dL (0.60-1.30); GLOMERULAR FILTR. RATE CALC > 60 mL/min (>60); GLUCOSE,RANDOM 88 mg/dL (70-110); POTASSIUM 3.5 mmol/L (3.5-5.1); SODIUM SERUM 139 mmol/L (136-145); UREA NITROGEN, BLOOD 16 mg/dL (7-18)
[2019-11-25 16:12] LABS: BASOPHILS % (AUTO) 0.9 % (0.0-2.0); EOSINOPHILS % (AUTO) 2.2 % (1.0-6.0); HEMATOCRIT 41.7 % (41-53); HEMOGLOBIN 14.6 g/dL (13.5-17.5); LYMPHOCYTES # (AUTO) 1.7 K/uL (1.0-4.8); LYMPHOCYTES % (AUTO) 20.5 % (22.0-44.0); MEAN CORPUSCULAR HEMOGLOBIN 30.7 pg (26.0-34.0); MEAN CORPUSCULAR HGB CONC 34.9 G/dL (31.0-37.0); MEAN CORPUSCULAR VOLUME 88 fL (80-100); MONOCYTES # (AUTO) 0.9 K/uL (0.1-1.0); MONOCYTES % (AUTO) 10.7 % (2.0-9.0); NEUTROPHILS # (AUTO) 5.4 K/uL (1.8-7.7); NEUTROPHILS % (AUTO) 65.7 % (40.0-70.0); PLATELET COUNT (AUTO) 288 K/uL (150-450); RED BLOOD CELL COUNT(AUTO) 4.74 MIL/uL (4.50-5.90); RED CELL DISTRIBUTION WIDTH 13.4 % (11.5-14.5)
[2019-11-25 16:15] LABS: ALANINE AMINOTRANSFERASE 24 U/L (12-78); ALKALINE PHOSPHATASE 82 U/L (46-116); ASPARTATE AMINOTRANSFERASE 23 U/L (15-37); BILIRUBIN,TOTAL 0.5 mg/dL (0.1-1.0); TOTAL PROTEIN, SERUM 7.9 g/dL (6.4-8.2)
[2019-11-25 17:01] LABS: AMPHET/METH SCREEN,URINE POSITIVE (NEGATIVE); BARBITURATE SCREEN, URINE NEGATIVE (NEGATIVE); BENZODIAZEPINES SCREEN,URINE NEGATIVE (NEGATIVE); CANNABINOID SCREEN,URINE POSITIVE (NEGATIVE); COCAINE SCREEN,URINE NEGATIVE (NEGATIVE); METHADONE SCREEN, URINE NEGATIVE (NEGATIVE); OPIATE SCREEN,URINE NEGATIVE (NEGATIVE)
[2019-11-25 17:06] LABS: PHENCYCLIDINE SCREEN,URINE NEGATIVE (NEGATIVE)
[2019-11-25 19:11] VITALS: BP 130/91
[2019-11-26 04:37] VITALS: BP 100/74
[2019-11-26] MEDS ORDERED: LOPERAMIDE HCL 2 MG CAPSULE PO PRN (08:00)
[2019-11-26] MEDS ORDERED: DOCUSATE SODIUM 100 MG CAPSULE PO PRN (08:00)
[2019-11-26] MEDS ORDERED: CloNIDine HCL 0.1 MG TABLET PO PRN (08:00)
[2019-11-26] MEDS ORDERED: IBUPROFEN 400 MG TABLET PO PRN (08:00)
[2019-11-26] MEDS ORDERED: ALBUTEROL SULFATE HFA 90 MCG/PUFF 8 GM INHALER IH PRN (08:00)
[2019-11-26] MEDS ORDERED: GuaiFENesin/D-METHORPHAN [SUGAR-FREE] 200-20MG/10 ML SYRUP UDCUP PO PRN (08:00)
[2019-11-26] MEDS ORDERED: ONDANSETRON HCL 4 MG TABLET PO PRN (08:00)
[2019-11-26] MEDS ORDERED: NICOTINE 14 MG/24 HOUR PATCH TD PRN (08:00)
[2019-11-26] MEDS ORDERED: MAGNESIUM HYDROXIDE SUSPENSION 30 ML UDCUP PO PRN (08:00)
[2019-11-26] MEDS ORDERED: MAG HYDROX/AL HYDROX/SIMETH ES 30 ML SUSPENSION UDCUP PO PRN (08:00)
[2019-11-26] MEDS ORDERED: PETROLATUM,WHITE 28 GM JELLY TP PRN (08:00)
[2019-11-26] MEDS ORDERED: ACETAMINOPHEN 325 MG TABLET PO PRN (08:00)
[2019-11-26] MEDS: BuPROPion HCL XL 150 MG ER TABLET PO SCH (12:45)
[2019-11-26 16:08] VITALS: BP 115/65
[2019-11-26] MEDS: GABAPENTIN 300 MG CAPSULE PO SCH (16:41)
[2019-11-26] MEDS: BusPIRone HCL 10 MG TABLET PO SCH (16:41)
[2019-11-26] MEDS: MIRTAZAPINE 15 MG TABLET PO SCH (21:07)
[2019-11-26] MEDS: OLANZapine 10 MG TABLET PO SCH (21:07)
[2019-11-27 05:27] VITALS: BP 110/67
[2019-11-27 08:17] VITALS: BP 107/62
[2019-11-27] MEDS: BuPROPion HCL XL 150 MG ER TABLET PO SCH (08:28)
[2019-11-27] MEDS: GABAPENTIN 300 MG CAPSULE PO SCH ×2 (08:28→16:44)
[2019-11-27] MEDS: BusPIRone HCL 10 MG TABLET PO SCH ×2 (08:28→16:43)
[2019-11-27 16:16] VITALS: BP 109/62
[2019-11-27] MEDS: MIRTAZAPINE 15 MG TABLET PO SCH (20:26)
[2019-11-27] MEDS: OLANZapine 10 MG TABLET PO SCH (20:26)
[2019-11-28 05:28] VITALS: BP 100/64
[2019-11-28] MEDS: BusPIRone HCL 10 MG TABLET PO SCH ×2 (08:24→16:23)
[2019-11-28] MEDS: GABAPENTIN 300 MG CAPSULE PO SCH ×2 (08:24→16:23)
[2019-11-28] MEDS: BuPROPion HCL XL 150 MG ER TABLET PO SCH (08:24)
[2019-11-28 16:09] VITALS: BP 114/73
[2019-11-28] MEDS: MIRTAZAPINE 15 MG TABLET PO SCH (20:43)
[2019-11-28] MEDS: OLANZapine 10 MG TABLET PO SCH (20:43)
[2019-11-29 00:33] VITALS: BP 122/75
[2019-11-29] MEDS: BuPROPion HCL XL 150 MG ER TABLET PO SCH (08:09)
[2019-11-29] MEDS: BusPIRone HCL 10 MG TABLET PO SCH ×2 (08:11→16:48)
[2019-11-29] MEDS: GABAPENTIN 300 MG CAPSULE PO SCH ×2 (08:12→16:48)
[2019-11-29 08:39] VITALS: BP 104/62
[2019-11-29 17:07] VITALS: BP 104/62
[2019-11-29] MEDS: OLANZapine 10 MG TABLET PO SCH (20:10)
[2019-11-29] MEDS: MIRTAZAPINE 15 MG TABLET PO SCH (20:10)
[2019-11-30 05:16] VITALS: BP 117/64
[2019-11-30] MEDS: BusPIRone HCL 10 MG TABLET PO SCH ×2 (07:59→16:13)
[2019-11-30] MEDS: GABAPENTIN 300 MG CAPSULE PO SCH ×2 (07:59→16:13)
[2019-11-30] MEDS: BuPROPion HCL XL 150 MG ER TABLET PO SCH (07:59)
[2019-11-30 08:09] VITALS: BP 115/67
[2019-11-30 16:45] VITALS: BP 102/68
[2019-11-30] MEDS: OLANZapine 10 MG TABLET PO SCH (20:28)
[2019-11-30] MEDS: MIRTAZAPINE 15 MG TABLET PO SCH (20:28)
[2019-12-01 04:09] VITALS: BP 112/70
[2019-12-01 08:10] VITALS: BP 118/65
[2019-12-01] MEDS: GABAPENTIN 300 MG CAPSULE PO SCH ×2 (09:01→16:22)
[2019-12-01] MEDS: BusPIRone HCL 10 MG TABLET PO SCH ×2 (09:01→16:22)
[2019-12-01] MEDS: BuPROPion HCL XL 150 MG ER TABLET PO SCH (09:04)
[2019-12-01 16:15] VITALS: BP 124/65
[2019-12-01] MEDS: MIRTAZAPINE 15 MG TABLET PO SCH (20:31)
[2019-12-01] MEDS: OLANZapine 10 MG TABLET PO SCH (20:31)
[2019-12-02] MEDS: MULTIVITAMINS WITH MINERALS, THERAPEUTIC TABLET PO SCH (08:39)
[2019-12-02] MEDS: GABAPENTIN 300 MG CAPSULE PO SCH ×2 (08:39→17:18)
[2019-12-02] MEDS: BusPIRone HCL 10 MG TABLET PO SCH ×2 (08:39→17:18)
[2019-12-02] MEDS: BuPROPion HCL XL 150 MG ER TABLET PO SCH (08:39)
[2019-12-02 16:16] VITALS: BP 110/72
[2019-12-02] MEDS: MIRTAZAPINE 15 MG TABLET PO SCH (20:59)
[2019-12-02] MEDS: OLANZapine 10 MG TABLET PO SCH (20:59)
[2019-12-03 05:41] VITALS: BP 110/72
[2019-12-03 08:14] VITALS: BP 102/66
[2019-12-03] MEDS: MULTIVITAMINS WITH MINERALS, THERAPEUTIC TABLET PO SCH (08:28)
[2019-12-03] MEDS: BusPIRone HCL 10 MG TABLET PO SCH ×2 (08:28→16:15)
[2019-12-03] MEDS: BuPROPion HCL XL 150 MG ER TABLET PO SCH (08:28)
[2019-12-03] MEDS: GABAPENTIN 300 MG CAPSULE PO SCH ×2 (08:28→16:15)
[2019-12-03 16:06] VITALS: BP 115/85
[2019-12-03] MEDS: OLANZapine 10 MG TABLET PO SCH (20:27)
[2019-12-03] MEDS: MIRTAZAPINE 15 MG TABLET PO SCH (20:27)
[2019-12-04 05:34] VITALS: BP 118/81
[2019-12-04 08:33] VITALS: BP 103/72
[2019-12-04] MEDS: GABAPENTIN 300 MG CAPSULE PO SCH (08:35)
[2019-12-04] MEDS: BuPROPion HCL XL 150 MG ER TABLET PO SCH (08:35)
[2019-12-04] MEDS: MULTIVITAMINS WITH MINERALS, THERAPEUTIC TABLET PO SCH (08:35)
[2019-12-04] MEDS: BusPIRone HCL 10 MG TABLET PO SCH (08:35)
== END 2019-12-04 12:00 | disposition home or self-care (01) | DRG 885 ==
LOC: EMS 14:03 → B2S 17:42 → B3A 18:23
PROVIDERS: ADMIT Psychiatry & Neurology Psychiatry; ATTEND Psychiatry & Neurology Psychiatry
DX: F20.9 Schizophrenia, unspecified (principal); R45.851 Suicidal ideations; E78.5 Hyperlipidemia, unspecified; F10.10 Alcohol abuse, uncomplicated; F31.9 Bipolar disorder, unspecified; I10 Essential (primary) hypertension; F19.10 Other psychoactive substance abuse, uncomplicated; F17.210 Nicotine dependence, cigarettes, uncomplicated; F41.9 Anxiety disorder, unspecified; Z59.0 Homelessness; Z79.899 Other long term (current) drug therapy
CPT/HCPCS: G0480